=== PATIENT | male | born 1995 | race American Indian/Alaskan Native ===

== ENCOUNTER 2020-04-19 16:59 | Emergency (ER) | payer BC ==
[2020-04-19 17:06] VITALS: BP 135/69
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
--- NOTE | 2020-04-19 17:33 | XRay Report ---
RIGHT KNEE 3 VIEW(S) INDICATION / CLINICAL INFORMATION: pain/lac COMPARISON: None available. FINDINGS: BONES / JOINT(S): No acute fracture or subluxation. No significant arthritis. No significant joint ef fusion. SOFT TISSUES: No significant abnormality. No soft tissue gas or radiopaque foreign body identified. ADDITIONAL FINDINGS: None. IMPRESSION: No acute process of the right knee. Signer Name: Giovanny Tatum MD Signed: 04/19/2020 5:28 PM Workstation Name: [id number]
[2020-04-19] MEDS ORDERED: IBUPROFEN 800 MG TAB PO ONE (17:58)
--- NOTE | 2020-04-19 19:33 | Emergency Department Report ---
- Laceration /Wound Repair Right Knee Wound Length (cm): 2 Wound's Depth, Shape: irregular Wound Explored: no foreign body removed Irrigated w/ Saline (ccs): 150 Betadine Prep?: Yes Anesthesia: 1% Lidocaine Volume Anesthetic (ccs): 6 Wound Repaired With: sutures Suture Size/Type: 4:0, proline Number of Sutures: 6 (Simple interrupted) Layer Closure?: No Sterile Dressing Applied?: Yes Progress: Minimal bleeding occurred. Patient tolerated procedure well without any immediate complications
== END 2020-04-19 19:20 | disposition home or self-care (01) ==
LOC: ED 16:59
DX: S81.011A Laceration without foreign body, right knee, initial encounter (principal); F17.200 Nicotine dependence, unspecified, uncomplicated; Z79.1 Long term (current) use of non-steroidal anti-inflammatories (NSAID); Z79.899 Other long term (current) drug therapy; V29.9XXA Motorcycle rider (driver) (passenger) injured in unspecified traffic accident, initial encounter; Y93.89 Activity, other specified; Y92.410 Unspecified street and highway as the place of occurrence of the external cause; Y99.8 Other external cause status

== ENCOUNTER 2020-05-03 11:22 | Emergency (ER) | payer BC ==
[2020-05-03 11:45] VITALS: BP 119/63
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
== END 2020-05-03 12:21 | disposition home or self-care (01) ==
LOC: ED 11:22
DX: S89.91XD Unspecified injury of right lower leg, subsequent encounter (principal); Z48.02 Encounter for removal of sutures; Z79.1 Long term (current) use of non-steroidal anti-inflammatories (NSAID); Z79.899 Other long term (current) drug therapy; X58.XXXD Exposure to other specified factors, subsequent encounter
CPT/HCPCS: 99282

== ENCOUNTER 2020-09-18 21:14 | Emergency (ER) | payer BC ==
[2020-09-18 23:01] LABS: Mean Corpuscular HGB Conc 25 % (32-34); Mean Corpuscular Volume 85 fl (84-94); Platelet Count 256 K/mm3 (140-440); Red Blood Count 4.75 M/mm3 (3.65-5.03); Red Cell Distribution Width 12.5 % (13.2-15.2)
[2020-09-18 23:20] LABS: BUN/Creatinine Ratio 18; Blood Urea Nitrogen 16 mg/dL (9-20); Calcium 9.6 mg/dL (8.4-10.2); Hemolysis Index 7
[2020-09-18 23:39] VITALS: BP 142/66
[2020-09-18 23:51] LABS: Hematocrit 40.5 % (35.5-45.6); Hemoglobin 10.1 gm/dl (11.8-15.2)
[2020-09-18 23:52] LABS: Basophils # (Auto) 0.1 K/mm3 (0.0-0.1); Basophils % (Auto) 1.1 % (0.0-1.8); Eosinophils # (Auto) 0.2 K/mm3 (0.0-0.4); Eosinophils % (Auto) 3.3 % (0.0-4.3); Lymphocytes # (Auto) 2.1 K/mm3 (1.2-5.4); Lymphocytes % (Auto) 41.5 % (13.4-35.0); Monocytes # (Auto) 0.6 K/mm3 (0.0-0.8); Monocytes % (Auto) 11.6 % (0.0-7.3)
[2020-09-19 00:25] LABS: Bilirubin,Urine NEG (Negative); Blood,Urine NEG (Negative); Color,Urine Yellow (Yellow); Mucus,Urine FEW /HPF; Protein,Urine <15 mg/dL mg/dL (Negative); RBC,Urine < 1.0 /HPF (0.0-6.0)
--- NOTE | 2020-09-19 09:58 | Electrocardiograph Report ---
[facility] Test Date: 2020-09-18 Test Time: 21:44:28 Pat Name: CAMACHO MARES Department: Room: Gender: M [employer]: MARKY : 1995 Requested By: SAÚL GARCIA Order Number: [id number] Reading MD: Jerry Messina Measurements Intervals [place] Rate: 54 P: 52 MI: 150 QRS: 45 QRSD: 85 T: 37 QT: 393 QTc: 372 Interpretive Statements Sinus bradycardia No previous ECG available for comparison Electronically Signed On 09-19-2020 9:58:12 EDT by Jerry Messina
--- NOTE | 2020-10-27 00:34 | Emergency Department Report ---
ED General Adult HPI - General Chief complaint: Abdominal Pain Stated complaint: HIGH POTASSIUM/DR REFERRED Time Seen by Provider: 09/19/20 00:01 Source: patient Mode of arrival: Ambulatory Limitations: No Limitations - History of Present Illness Initial comments: 25-year-old male with asthma department for potassium evaluation states that his doctor advised him to come in a potassium checked and treated due to have been elevated from a visit 2 or 3 days ago. Patient states he does sweat an increased amount has been [place] provoking elbow has no significant cyst symptoms to support this potassium elevation. Reports no change in his medication, no new medications or no potassium sparing medications. No known kidney issues reports no fever, chills, sweats no chest pain palpitation no nausea no vomiting. Severity scale (0 -10): 0 - Related Data Previous Rx's Medication Instructions Recorded Last Taken Type Bacitracin/Polymixin B [Polysporin] 1 applicatio TP BID #1 tube 04/19/20 Unknown Rx Ibuprofen [Motrin] 800 mg PO Q8HR #30 tablet 04/19/20 Unknown Rx cephALEXin [Keflex] 500 mg PO Q12HR #10 cap 04/19/20 Unknown Rx Allergies Allergy/AdvReac Type Severity Reaction Status Date / Time No Known Allergies Allergy Verified 05/03/20 11:42 ED Review of Systems ROS: Stated complaint: HIGH POTASSIUM/DR REFERRED Other details as noted in HPI Comment: All other systems reviewed and negative ED Past Medical Hx - Past Medical History Hx Congestive Heart Failure: No Hx Diabetes: No Hx Asthma: No Hx COPD: No Hx HIV: No - Social History Smoking Status: Never Smoker Substance Use Type: Alcohol - Medications Home Medications: Home Medications Medication Instructions Recorded Confirmed Last Taken Type Bacitracin/Polymixin B [Polysporin] 1 applicatio TP BID #1 tube 04/19/20 Unk nown Rx Ibuprofen [Motrin] 800 mg PO Q8HR #30 tablet 04/19/20 Unknown Rx cephALEXin [Keflex] 500 mg PO Q12HR #10 cap 04/19/20 Unknown Rx ED Physical Exam - General Limitations: No Limitations General appearance: alert, in no apparent distress - Head Head exam: Present: atraumatic, normocephalic - Eye Eye exam: Present: normal appearance - ENT ENT exam: Present: mucous membranes moist - Neck Neck exam: Present: normal inspection - Respiratory Respiratory exam: Present: normal lung sounds bilaterally. Absent: respiratory distress - Cardiovascular Cardiovascular Exam: Present: regular rate, normal rhythm. Absent: systolic murmur, diastolic murmur, rubs, gallop - GI/Abdominal GI/Abdominal exam: Present: soft, normal bowel sounds - Rectal Rectal exam: Present: deferred - Extremities Exam Extremities exam: Present: normal inspection - Back Exam Back exam: Present: normal inspection - Neurological Exam Neurological exam: Present: alert, oriented X3 - Psychiatric Psychiatric exam: Present: normal affect, normal mood - Skin Skin exam: Present: warm, dry, intact, normal color. Absent: rash ED Course Vital Signs 09/18/20 21:39 Temperature 98.7 F Pulse Rate 58 L Respiratory 18 Rate Blood Pressure 142/66 O2 Sat by Pulse 96 Oximetry ED Medical Decision Making - Lab Data Result diagrams: 09/18/20 22:49 09/18/20 22:49 Lab Results 09/18/20 09/18/20 09/19/20 Range/Units 22:49 22:49 Unknown WBC 3.9 L (4.5-11.0) K/mm3 RBC 4.75 (3.65-5.03) M/mm3 Hgb 10.1 L (11.8-15.2) gm/dl Hct 40.5 (35.5-45.6) % MCV 85 (84-94) fl MCH 21 L (28-32) pg MCHC 25 L (32-34) % RDW 12.5 L (13.2-15.2) % Plt Count 256 (140-440) K/mm3 Lymph % (Auto) 41.5 H (13.4-35.0) % Person % (Auto) 11.6 H (0.0-7.3) % Eos % (Auto) 3.3 (0.0-4.3) % Baso % (Auto) 1.1 (0.0-1.8) % Lymph # (Auto) 2.1 (1.2-5.4) K/mm3 Person # (Auto) 0.6 (0.0-0.8) K/mm3 Eos # (Auto) 0.2 (0.0-0.4) K/mm3 Baso # (Auto) 0.1 (0.0-0.1) K/mm3 Seg Neutrophils % 42.5 (40.0-70.0) % Seg Neutrophils # 2.1 (1.8-7.7) K/mm3 Sodium 136 L (137-145) mmol/L Potassium 4.4 (3.6-5.0) mmol/L Chloride 101.8 (98-107) mmol/L Carbon Dioxide 26 (22-30) mmol/L Anion Gap 13 mmol/L BUN 16 (9-20) mg/dL Creatinine 0.9 (0.8-1.3) mg/dL Estimated GFR > 60 ml/min BUN/Creatinine Ratio 18 % Glucose 82 (75-100) mg/dL Calcium 9.6 (8.4-10.2) mg/dL Urine Color Yellow (Yellow) Urine Turbidity Clear (Clear) Urine pH 7.0 (5.0-7.0) Ur Specific [place] 1.021 (1.003-1.030) Urine Protein <15 mg/dl (Negative) mg/dL Urine Glucose (UA) Neg (Negative) mg/dL Urine Ketones Neg (Negative) mg/dL Urine Blood Neg (Negative) Urine Nitrite Neg (Negative) Urine Bilirubin Neg (Negative) Urine Urobilinogen 2.0 (<2.0) mg/dL Ur Leukocyte Esterase Neg (Negative) Urine WBC (Auto) 1.0 (0.0-6.0) /HPF Urine RBC (Auto) < 1.0 (0.0-6.0) /HPF Urine Mucus Few /HPF Critical care attestation.: If time is entered above; I have spent that time in minutes in the direct care o f this critically ill patient, excluding procedure time. ED Disposition Clinical Impression: Encounter for medical screening examination Disposition: DC-01 TO HOME OR SELFCARE Is pt being admited?: No Does the pt Need Aspirin: No Condition: Stable Instructions: Medical Screening Exam Additional Instructions: Your potassium levels are normal follow-up with your doctor at your convenience Referrals: PRIMARY CARE, [Primary Care Provider] - 3-5 Days
== END 2020-09-19 01:30 | disposition home or self-care (01) ==
LOC: ED 21:14
DX: Z13.9 Encounter for screening, unspecified (principal); E87.5 Hyperkalemia; Z79.899 Other long term (current) drug therapy
CPT/HCPCS: 36415; 80048; 81001; 85025; 93005